=== PATIENT | male | born 1950 | race Two or more races ===

== ENCOUNTER 2019-05-30 17:40 | Inpatient (IN) | payer OTHER, MEDICARE ==
[~2019-05-30] VITALS: Ht 182.9 cm; Wt 110.2 kg
[~2019-05-30 17:40] MED LIST: ACET500 PO; ASPI81EC PO; BUPR100 PO; CYAN1000I IM; ETOD400 PO; PRAZ2 PO; QUET200 PO; Simvastatin40 MG PO; TOLT4 PO; Zantac150 MG PO
[2019-05-30 18:25] LABS: BASOPHILS ABSOLUTE AUTO 0.05 K/mm3 (0.00-0.23); BASOPHILS PERCENT AUTO 1 % (0-2); EOSINOPHILS ABSOLUTE AUTO 0.11 K/mm3 (0.00-0.68); EOSINOPHILS PERCENT AUTO 1 % (0-6); Hematocrit 47.9 % (37.0-53.0); IMMATURE GRAN ABSOLUTE AUTO 0.02 K/mm3 (0.00-0.10); IMMATURE GRAN PERCENT AUTO 0 % (0-1); LYMPHOCYTES PERCENT AUTO 25 % (21-46); MONOCYTES ABSOLUTE AUTO 0.74 K/mm3 (0.16-1.47); MONOCYTES PERCENT AUTO 9 % (4-13); Mean Corpuscular HGB 23.7 pg (26.0-34.0); Mean Corpuscular HGB Conc 31.3 g/dL (31.5-36.5); Mean Corpuscular Volume 76 fL (80-100); Mean Platelet Volume 9.4 fL (9.1-12.4); NEUTROPHILS ABSOLUTE AUTO 5.17 K/mm3 (1.96-9.15); NEUTROPHILS PERCENT AUTO 64 % (41-73); Platelet Count 431 K/mm3 (150-400); RDW Coefficient Variation 15.3 % (11.7-14.2); RDW Standard Deviation 41.3 fL (35.1-46.3); Red Blood Cell Count 6.34 M/mm3 (4.30-5.90); White Blood Cell Count 8.09 K/mm3 (4.00-11.30)
[2019-05-30 18:50] LABS: Alanine Aminotransfer (ALT/SGP 44 U/L (12-78); Albumin, Blood 3.8 g/dL (3.4-5.0); Albumin/Globulin Ratio 0.9 (0.8-1.8); Alk Phos 135 U/L (50-136); Anion Gap 10 mmol/L (6-16); Aspartate Aminotrans (AST/SGOT 28 U/L (12-37); Bilirubin, Total 0.5 mg/dL (0.1-1.0); Blood Urea Nitrogen 50 mg/dL (8-24); Bun/Creatinine Ratio 29.8 (12.0-20.0); CO2, Blood 27 mmol/L (21-32); Calcium, Blood 9.4 mg/dL (8.5-10.1); Chloride, Blood 94 mmol/L (98-108); Creatinine, Blood 1.68 mg/dL (0.60-1.20); Globulin, Blood 4.4 g/dL (2.2-4.0); Glomerular Filtration Rate 43 (60-); Glucose, Blood 361 mg/dL (70-99); Potassium, Blood 4.5 mmol/L (3.5-5.5); Sodium, Blood 131 mmol/L (136-145); Total Protein, Blood 8.2 g/dL (6.4-8.2); Troponin I <0.015 ng/mL (0.000-0.040)
[2019-05-30] MEDS ORDERED: JARDIANCE25 MG PO (20:44)
[2019-05-30] MEDS ORDERED: ELIQUIS5 MG PO (20:44)
[2019-05-30] MEDS ORDERED: TORSE20 PO (20:45)
[2019-05-30] MEDS ORDERED: POTA10T PO (20:46)
[2019-05-30] MEDS ORDERED: METF500 PO (20:46)
[2019-05-30] MEDS ORDERED: METO100ER PO (20:47)
--- NOTE | 2019-05-31 02:20 | NUR ---
PT REQUESTED ASSISTANCE TO BSC TO HAVE A BM. THIS RN ENCOURAGED PT TO USE BEDPAN, HOWEVER PT REFUSED. ASSISTED PT TO BSC AND STAYED WITH PT FOR SEVERAL MINUTES. PT REPORTED THAT HE FELT FINE, PT WAS STABLE ON BSC. WHEN I WENT TO GRAB A NEW ATTENDS FOR THE PT ON BEDSIDE SHELF PT HAD SYNCOPAL EPISODE AND FELL FORWARD FROM BSC DOWN TO ONE KNEE. ASSISTED PT BACK TO BED IMMEDIATELY. PT DID NOT HIT HIS HEAD AND DENIED ANY INJURY. VITALS TAKEN WHICH WERE WNL. DURING INSTANCE, TELE STATED THAT PT HR HAD JUMPED TO 150'S, THEN BACK DOWN TO 90'S ONCE BACK IN BED. NOTIFIED DR CASTREJON. DR CASTREJON VERIFIED THAT PT WAS ON IV FLUIDS AND STATED TO KEEP PT IN BED AT THIS TIME. WILL CONTINUE TO MONITOR PT.
--- NOTE | 2019-05-31 04:48 | NUR ---
MARINE CONSULTANT SUMMARY NEW ADMIT FROM THE ED THIS SHIFT. PT AAOX4 AND PLEASANT. ADMITTED AFTER HAVING MULTIPLE SYNCOPAL EPISODES AT HOME. PT CONTINUES TO BE SYMPTOMATIC HERE AT THE HOSPITAL. WHENEVER PT EXERTS HIMSELF BY TRYING TO STAND UP PT WILL BECOME LIGHT HEADED AND WILL ALMOST FALL. PT DID FALL FORWARD ONTO HIS KNEES FROM THE BSC AT ONE POINT, SEE PREVIOUS NOTE FOR MORE DETAIL. PT IS NOW ON BEDREST AFTER TALKING WITH DR CASTREJON. PT TO HAVE CARDIOLOGY CONSULT WITH DR RENTERIA LATER TODAY. TELEMETRY REPORTS INCREASE IN PT'S HR DURING THESE EPISODES. WILL CONTINUE TO MONITOR.
[2019-05-31 06:03] LABS: Bun/Creatinine Ratio 28.2 (12.0-20.0); Calcium, Blood 8.8 mg/dL (8.5-10.1); Creatinine, Blood 1.49 mg/dL (0.60-1.20); Potassium, Blood 4.1 mmol/L (3.5-5.5)
--- NOTE | 2019-05-31 16:14 | NUR ---
ORTHOSTATIC VITALS LYING: B/P 123/83 PULSE 99 SITTING: B/P 92/71 PULSE 95 STANDING: B/P 78/46 PULSE 61
--- NOTE | 2019-05-31 18:27 | NUR ---
PATIENT A/OX4, UP WITH GAITBELT AND ASSIST TO BSC. ORTHOSTATIC HYPOTESION WITH THIS EVENING VITALS, DR. LANG AND DR SIMPSON NOTIFED. XERALTO D/C'D AND PATIENT HAS SCD'S IN PLACE IN PREPARATION FOR ANGIOGRAM ON 06/02. PATIENT TO BE NPO AFTER MIDNIGHT TOMORROW 06/01. 18G IV TO L FA WNL, NS@100ML/HR INFUSING. LUNGS CLEAR, ON RA. DENIES ANY PAIN. FALL PRECAUTIONS IN PLACE PER UNIT PROTOCOL. AC BLOOD SUGARS, COVERAGE PER SLIDING SCALE. SKIN INTACT.
[2019-06-01 05:04] LABS: Hematocrit 46.5 % (37.0-53.0); Hemoglobin 13.8 g/dL (13.5-17.5); Mean Corpuscular HGB 23.2 pg (26.0-34.0); Mean Corpuscular HGB Conc 29.7 g/dL (31.5-36.5); Mean Corpuscular Volume 78 fL (80-100); Mean Platelet Volume 9.5 fL (9.1-12.4); Platelet Count 354 K/mm3 (150-400); RDW Coefficient Variation 15.5 % (11.7-14.2); RDW Standard Deviation 43.2 fL (35.1-46.3); Red Blood Cell Count 5.96 M/mm3 (4.30-5.90); White Blood Cell Count 6.88 K/mm3 (4.00-11.30)
[2019-06-01 05:36] LABS: Bun/Creatinine Ratio 23.6 (12.0-20.0); Creatinine, Blood 1.57 mg/dL (0.60-1.20); Potassium, Blood 4.1 mmol/L (3.5-5.5)
--- NOTE | 2019-06-01 16:09 | NUR ---
PATIENT GAVE THIS STUDENT RN PERMISSION TO BE PART OF HIS CARE ON 06/02/19.
--- NOTE | 2019-06-01 17:47 | NUR ---
PATIENT A/OX4, UP WITH SBA TO RESTROOM. NPO AFTER MN TONIGHT FOR ANGIOGRAM IN AM. A-FIB ON TELE, PATIENT DENIES ANY CP OR SOB. VSS, ON RA. DENIES ANY DIZZINESS THIS SHIFT. 18G IV TO L FA WNL AND SL. TOLERATING ADA/CARDIAC DIET. AC BLOOD SUGARS, COVERAGE PER SS.
--- NOTE | 2019-06-01 19:50 | NUR ---
MISSY WAS LAYING IN BED, DENIES ANY DIZZINESS AT THIS TIME. STATES HE THINKS HIS DIZZINESS WAS FROM HIM TAKING TO MANY BLOOD PRESSURE MEDS ALL AT ONCE. STATES HE DOES NOT GET DIZZY UPON STANDING IT IS WHEN HE REACHES THE BATHROOM OR SEVERAL FEET LATER. HE DOES NOT LOOSE VISION JUST HIS LEGS WANT TO GIVE OUT ON HIM. STATES HE NEEDED TO GO TO THE BATHROOM. HE GOT UP AND WAS ABLE TO WALK TO THE BATHROOM STEADY. BUT ON THE WAY BACK TO THE BED, HE GOT VERY UNSTEADY AND ALMOST FELL TWICE. PLACED THE BED ALARM ON HIM AND ENCOURAGE HIM TO CALL WHEN HE GETS UP FOR SAFETY.
[2019-06-02 05:18] LABS: International Normalized Ratio 1.12; Prothrombin Time Results 11.9 Sec (9.7-11.5)
--- NOTE | 2019-06-02 05:34 | NUR ---
SHIFT SUMMARY: MISSY QUEZADA REMAINED WITH IN NORMAL LIMITS. HE DID HAVE A LOW THIS AM IN THE 70'S BUT ON RETAKE IT WAS ABOVE 100 SYSTOLIC. CONTINUES TO HAVE DIZZINESS WHEN HE GETS UP AND WALKS A FEW FEET. WAS UNSTEADY WHEN GOING TO BATHROOM TONIGHT AND ALMOST FELL A COUPLE OF TIMES. DOES NOT USE CALL LIGHT WOULD SET THE ALARM OFF EACH TIME. STATES HE IS NOT DIZZY WHEN HE IS. DENIED ANY PAIN OR DISCOMFORT. NPO AFTER MIDNIGHT. SLEPT 90% OF THE NIGHT. CALL LIGHT REMAINED IN REACH AND BED ALARM REMAINED ON.
[2019-06-02 05:37] LABS: Calcium, Blood 8.8 mg/dL (8.5-10.1); Creatinine, Blood 1.26 mg/dL (0.60-1.20); Magnesium, Blood 2.2 mg/dL (1.6-2.4); Potassium, Blood 3.7 mmol/L (3.5-5.5)
[2019-06-02] MEDS ORDERED: Ropinirole HCl1 MG PO (13:41)
--- NOTE | 2019-06-02 16:34 | NUR ---
The pt arrived from the heart center at approx 1545. Awake, alert, and oriented. Instructed a few times not to use the right arm/hand. Right wrist site is without bleeding, bruising, swelling nor evidence of anthony osmani. Denies pain/numbness/tingling in the right upper extremity. TR band is in place; I was told in report by Jie Hayes that it was inflated with 9 cc air. White immoblizer board also in place. The site has been assessed with each vital sign check, and remains unchanged from intial assessment. Vital signs noted, and reported to Arlene Jasmine, the primary RN. Pt denies any lightheadedness/dizzyness while siting up in bed. He was given a snack just after arrival at 1600. Instructed the pt to be sure to call and have a staff member with him when he needs to get OOB to toilet or stretch his legs. He verbalized understanding of this.
[2019-06-03 03:56] LABS: BASOPHILS ABSOLUTE AUTO 0.03 K/mm3 (0.00-0.23); BASOPHILS PERCENT AUTO 1 % (0-2); EOSINOPHILS ABSOLUTE AUTO 0.16 K/mm3 (0.00-0.68); EOSINOPHILS PERCENT AUTO 3 % (0-6); Hematocrit 44.1 % (37.0-53.0); Hemoglobin 13.5 g/dL (13.5-17.5); IMMATURE GRAN ABSOLUTE AUTO 0.01 K/mm3 (0.00-0.10); IMMATURE GRAN PERCENT AUTO 0 % (0-1); LYMPHOCYTES ABSOLUTE AUTO 2.01 K/mm3 (0.84-5.20); LYMPHOCYTES PERCENT AUTO 38 % (21-46); MONOCYTES ABSOLUTE AUTO 0.54 K/mm3 (0.16-1.47); MONOCYTES PERCENT AUTO 10 % (4-13); Mean Corpuscular HGB 23.6 pg (26.0-34.0); Mean Corpuscular HGB Conc 30.6 g/dL (31.5-36.5); Mean Corpuscular Volume 77 fL (80-100); Mean Platelet Volume 9.5 fL (9.1-12.4); NEUTROPHILS ABSOLUTE AUTO 2.56 K/mm3 (1.96-9.15); NEUTROPHILS PERCENT AUTO 48 % (41-73); Platelet Count 309 K/mm3 (150-400); RDW Coefficient Variation 15.3 % (11.7-14.2); RDW Standard Deviation 42.2 fL (35.1-46.3); Red Blood Cell Count 5.71 M/mm3 (4.30-5.90); White Blood Cell Count 5.31 K/mm3 (4.00-11.30)
[2019-06-03 04:27] LABS: Anion Gap 7 mmol/L (6-16); Blood Urea Nitrogen 26 mg/dL (8-24); Bun/Creatinine Ratio 22.8 (12.0-20.0); CO2, Blood 26 mmol/L (21-32); Calcium, Blood 8.6 mg/dL (8.5-10.1); Chloride, Blood 106 mmol/L (98-108); Creatinine, Blood 1.14 mg/dL (0.60-1.20); Glomerular Filtration Rate >60 (60-); Glucose, Blood 182 mg/dL (70-99); Potassium, Blood 3.9 mmol/L (3.5-5.5); Sodium, Blood 139 mmol/L (136-145)
--- NOTE | 2019-06-03 05:29 | NUR ---
SHIFT SUMMARY PT SLEEPING IN ROOM COMFORTABLY AT THIS TIME. NO ACUTE CHANGES IN STATUS T/O NIGHT. PT REPORTS DIDN'T SLEPT WELL. TR BAND WAS DEFLATED NO R WRIST. SITE WNL. NO HEMATOMA. FULL DEFLATED BY 0100, TEGADERM IN PLACE, ARMBOARD IN PLACE. RESP EVEN UNLABORED ON RA W/ SATS >92%. DENIED CP OR SOB T/O NIGHT. DENIES OTHER NEEDS. PT ASKED ABOUT BEDSIDE REPORT FOR THIS MORNING, PT REQUESTING NO BEDSIDE REPORT "I DIDN'T SLEEP WELL, I'D LIKE TO SLEEP IN". CALL LIGHT IS WITHIN REACH OF PT.
--- NOTE | 2019-06-03 08:31 | NUR ---
AM NOTE... ASSUMED CARE OF PT APROX 0700. PT IS A&Ox4 AND SBA IN THE ROOM. PT IS S/P ANGIO W/NO INTERVENTIONS. RIGHT RADIAL SITE IS C/D/I WITH NO REDNESS, SWELLING,BLEEDING OR HEMATOMA NOTED. PT DENIES ANY PAIN AT THIS TIME. PT'S VS STABLE. PT IS CLEARED PER CARDIOLOGY TO D/C HOME TODAY, PT IS WAITNG FOR PT/OT EVAL AT THIS TIME. PT IS AGREEABLE TO THIS PLAN OF CARE. CALL LIGHT IN REACH WILL CONTINUE TO MONITOR.
[2019-06-03] MEDS ORDERED: ASPI81CH PO (11:18)
== END 2019-06-03 15:11 | disposition home or self-care (01) | DRG 683 ==
LOC: ER 17:40 → MEDS 17:41 → PCU 06-02 15:36
PROVIDERS: Hospitalist; Internal Medicine; Internal Medicine Cardiovascular Disease; Physician Assistant; ADMIT Hospitalist
DX: N17.9 Acute kidney failure, unspecified (principal); E87.1 Hypo-osmolality and hyponatremia; I50.22 Chronic systolic (congestive) heart failure; I13.0 Hypertensive heart and chronic kidney disease with heart failure and stage 1 through stage 4 chronic kidney disease, or unspecified chronic kidney disease; I42.8 Other cardiomyopathies; I49.5 Sick sinus syndrome; N18.3 Chronic kidney disease, stage 3 (moderate); Z79.82 Long term (current) use of aspirin; E87.5 Hyperkalemia; E11.22 Type 2 diabetes mellitus with diabetic chronic kidney disease; Z79.4 Long term (current) use of insulin; Z98.84 Bariatric surgery status; E11.65 Type 2 diabetes mellitus with hyperglycemia; Z90.79 Acquired absence of other genital organ(s); F43.10 Post-traumatic stress disorder, unspecified; E86.1 Hypovolemia; R94.39 Abnormal result of other cardiovascular function study; T50.1X5A Adverse effect of loop [high-ceiling] diuretics, initial encounter; Y92.9 Unspecified place or not applicable
CPT/HCPCS: 36415; 71046; 76937; 80048; 80053; 82947; 83735; 83880; 84484; 85025; 85027; 85347; 85610; 86850; 86900; 86901; 93005; 93010; 93458; 96360; 97116; 97162; 99152; 99285-25; C1769; C1894; C8929; J1644; J2250; J3010; J7030; Q9957; Q9967

== ENCOUNTER 2020-07-21 13:38 | Emergency (ER) | payer OTHER ==
[~2020-07-21] VITALS: Ht 182.9 cm; Wt 118.8 kg
[~2020-07-21 13:38] MED LIST changes: +ASPI81CH PO; +ELIQUIS5 MG PO; +JARDIANCE25 MG PO; +METF500 PO; +METO100ER PO; +POTA10T PO; +Ropinirole HCl1 MG PO; +TORSE20 PO
[2020-07-21 14:11] LABS: BASOPHILS ABSOLUTE AUTO 0.03 K/mm3 (0.00-0.23); BASOPHILS PERCENT AUTO 0 % (0-2); EOSINOPHILS ABSOLUTE AUTO 0.14 K/mm3 (0.00-0.68); EOSINOPHILS PERCENT AUTO 2 % (0-6); Hematocrit 46.9 % (37.0-53.0); Hemoglobin 14.8 g/dL (13.5-17.5); IMMATURE GRAN ABSOLUTE AUTO 0.01 K/mm3 (0.00-0.10); IMMATURE GRAN PERCENT AUTO 0 % (0-1); LYMPHOCYTES ABSOLUTE AUTO 1.54 K/mm3 (0.84-5.20); LYMPHOCYTES PERCENT AUTO 20 % (21-46); MONOCYTES ABSOLUTE AUTO 0.68 K/mm3 (0.16-1.47); MONOCYTES PERCENT AUTO 9 % (4-13); Mean Corpuscular HGB 26.5 pg (26.0-34.0); Mean Corpuscular HGB Conc 31.6 g/dL (31.5-36.5); Mean Corpuscular Volume 84 fL (80-100); Mean Platelet Volume 9.7 fL (9.1-12.4); NEUTROPHILS ABSOLUTE AUTO 5.32 K/mm3 (1.96-9.15); NEUTROPHILS PERCENT AUTO 69 % (41-73); Platelet Count 304 K/mm3 (150-400); RDW Coefficient Variation 13.8 % (11.7-14.2); RDW Standard Deviation 42.3 fL (35.1-46.3); Red Blood Cell Count 5.58 M/mm3 (4.30-5.90); White Blood Cell Count 7.72 K/mm3 (4.00-11.30)
[2020-07-21 14:28] LABS: Alanine Aminotransfer (ALT/SGP 28 U/L (12-78); Albumin, Blood 3.6 g/dL (3.4-5.0); Alk Phos 101 U/L (50-136); Anion Gap 3 mmol/L (6-16); Aspartate Aminotrans (AST/SGOT 18 U/L (12-37); Bilirubin, Total 0.5 mg/dL (0.1-1.0); Blood Urea Nitrogen 17 mg/dL (8-24); Bun/Creatinine Ratio 14.8 (12.0-20.0); CO2, Blood 28 mmol/L (21-32); Calcium, Blood 8.8 mg/dL (8.5-10.1); Chloride, Blood 106 mmol/L (98-108); Creatinine, Blood 1.15 mg/dL (0.60-1.20); Globulin, Blood 3.5 g/dL (2.2-4.0); Glomerular Filtration Rate >60 (60-); Glucose, Blood 232 mg/dL (70-99); Potassium, Blood 4.3 mmol/L (3.5-5.5); Sodium, Blood 137 mmol/L (136-145); Total Protein, Blood 7.1 g/dL (6.4-8.2); Troponin I <0.015 ng/mL (0.000-0.040)
[2020-07-21] MEDS ORDERED: ACET500 PO (15:16)
[2020-07-21] MEDS ORDERED: ATOR40TA PO (15:17)
[2020-07-21] MEDS ORDERED: BENZ1 PO (15:18)
[2020-07-21] MEDS ORDERED: ARTIFICIAL TEA1 EAC6 BOTHEYES (15:21)
[2020-07-21] MEDS ORDERED: LANOXIN125 MCG PO (15:21)
[2020-07-21] MEDS ORDERED: JARDIANCE25 MG PO (15:23)
[2020-07-21] MEDS ORDERED: GABA300 PO (15:24)
[2020-07-21] MEDS ORDERED: HYDR454TO TOP (15:25)
[2020-07-21] MEDS ORDERED: HUMULIN N100 UNIT/6 SC (15:27)
[2020-07-21] MEDS ORDERED: METO50ER PO (15:29)
[2020-07-21] MEDS ORDERED: NITR.4SL SL (15:31)
[2020-07-21] MEDS ORDERED: TORSE20 PO (16:18)
== END 2020-07-21 17:53 | disposition home or self-care (01) ==
LOC: ER 13:38
PROVIDERS: Emergency Medicine
DX: G45.9 Transient cerebral ischemic attack, unspecified (principal); I48.91 Unspecified atrial fibrillation; I10 Essential (primary) hypertension; E11.9 Type 2 diabetes mellitus without complications; Z79.899 Other long term (current) drug therapy
CPT/HCPCS: 70450; 80053; 84484; 85025; 93005; 93010; 99285-25

== ENCOUNTER 2021-04-24 00:37 | Inpatient (IN) | payer OTHER ==
[~2021-04-24] VITALS: Ht 182.9 cm; Wt 99.1 kg
[~2021-04-24 00:37] MED LIST changes: +ACET325 PO; +ARTIFICIAL TEA1 EAC6 BOTHEYES; +ATOR40TA PO; +Benztropine Me0.5 MG PO; +GABA300 PO; +HUMULIN N100 UNIT/6 SC; +HYDR454TO TOP; +LANOXIN125 MCG PO; +METO50ER PO; +NITR.4SL SL
[2021-04-24 02:35] LABS: BASOPHILS ABSOLUTE AUTO 0.04 K/mm3 (0.00-0.23); BASOPHILS PERCENT AUTO 1 % (0-2); EOSINOPHILS ABSOLUTE AUTO 0.17 K/mm3 (0.00-0.68); EOSINOPHILS PERCENT AUTO 2 % (0-6); Hematocrit 44.4 % (37.0-53.0); Hemoglobin 14.1 g/dL (13.5-17.5); IMMATURE GRAN ABSOLUTE AUTO 0.01 K/mm3 (0.00-0.10); IMMATURE GRAN PERCENT AUTO 0 % (0-1); LYMPHOCYTES ABSOLUTE AUTO 1.94 K/mm3 (0.84-5.20); LYMPHOCYTES PERCENT AUTO 25 % (21-46); MONOCYTES ABSOLUTE AUTO 0.76 K/mm3 (0.16-1.47); MONOCYTES PERCENT AUTO 10 % (4-13); Mean Corpuscular HGB 25.8 pg (26.0-34.0); Mean Corpuscular HGB Conc 31.8 g/dL (31.5-36.5); Mean Corpuscular Volume 81 fL (80-100); Mean Platelet Volume 8.9 fL (9.1-12.4); NEUTROPHILS ABSOLUTE AUTO 4.74 K/mm3 (1.96-9.15); NEUTROPHILS PERCENT AUTO 62 % (41-73); Platelet Count 278 K/mm3 (150-400); RDW Standard Deviation 44.6 fL (35.1-46.3); Red Blood Cell Count 5.47 M/mm3 (4.30-5.90); White Blood Cell Count 7.66 K/mm3 (4.00-11.30)
[2021-04-24 03:24] LABS: Alanine Aminotransfer (ALT/SGP 44 U/L (12-78); Albumin, Blood 3.8 g/dL (3.4-5.0); Albumin/Globulin Ratio 1.2 (0.8-1.8); Alk Phos 109 U/L (50-136); Anion Gap 6 mmol/L (6-16); Aspartate Aminotrans (AST/SGOT 33 U/L (12-37); Bilirubin, Total 0.9 mg/dL (0.1-1.0); Blood Urea Nitrogen 18 mg/dL (8-24); Bun/Creatinine Ratio 18.8 (12.0-20.0); CO2, Blood 28 mmol/L (21-32); Chloride, Blood 103 mmol/L (98-108); Creatinine, Blood 0.96 mg/dL (0.60-1.20); Globulin, Blood 3.3 g/dL (2.2-4.0); Glomerular Filtration Rate >60 (60-); Glucose, Blood 171 mg/dL (70-99); Potassium, Blood 4.2 mmol/L (3.5-5.5); Sodium, Blood 137 mmol/L (136-145); Total Protein, Blood 7.1 g/dL (6.4-8.2); Troponin I <0.015 ng/mL (0.000-0.040)
[2021-04-24 07:17] LABS: Influenza A, PCR NEGATIVE (NEGATIVE); Influenza B, PCR NEGATIVE (NEGATIVE); Resp Syncytial Virus, PCR NEGATIVE (NEGATIVE); SARS-Cov-2 (COVID-19) PCR, MMC NEGATIVE (NEGATIVE)
[2021-04-24 11:25] LABS: Source, Urine Clean Catch
[2021-04-24 11:28] LABS: Appearance, Urine Hazy (Clear); Bilirubin, Urine Neg (Neg); Blood, Urine Neg (Neg); Color, Urine Yellow (P-Yellow); Glucose Qualitative, Urine 4+ (Neg); Ketones, Urine 1+ (Neg); Leukocyte Esterase, Urine Neg (Neg); Nitrite, Urine Neg (Neg); Protein, Urine 1+ (Neg); Specific Gravity, Urine 1.025 (1.003-1.022); Urobilinogen, Urine NORM (Normal)
[2021-04-24 11:47] LABS: Bacteria Not Seen /hpf; Mucus Light (0-Heavy); Red Blood Cells, Urine 0-2 /hpf (0-2); Squamous Epithelial Cells Not Seen /hpf (Few); White Blood Cells, Urine 0-2 /hpf (0-5)
[2021-04-24 12:14] LABS: U Amphetamine Screen Not Detected; U Barbituate Screen Not Detected; U Benzodiazapine Screen Not Detected; U Buprenorphine Screen Not Detected; U Cannabinoids Screen Not Detected; U Cocaine Screen Not Detected; U Methadone Screen Not Detected; U Methamphetamine Screen Not Detected; U Opiates Screen Not Detected; U Oxycodone Screen Not Detected; U Phencyclidine Screen Not Detected; U Propoxyphene Screen Not Detected
--- NOTE | 2021-04-24 15:30 | NUR ---
Echocardiogram completed.
--- NOTE | 2021-04-24 17:39 | NUR ---
SHIFT SUMMARY PATIENT ADMITTED FROM ER AT 1545. PATIENT SETTLED INTO ROOM. PATIENT DENIES PAIN, NAUSEA, AND SHORTNESS OF BREATH. TELE PLACED, RUNNING AFIB AT 79 PER TOY ELECTRIC TRAIN REPAIRER JEROME. PATIENT A&O X2-3. PATIENT KNEW HE WAS IN A HOSPITAL BUT THOUGHT HE WAS IN [place]. PATIENT IS A SBA. PATIENT DOES NOT USE CALL LIGHT APPROPRIATELY, BUT FOLLOWS OTHER DIRECTIONS WELL AND IS EASILY REDIRECTED. PATIENT EATING AND DRINKING WELL. PATIENT IS PLEASANT AND COOPERATIVE WITH CARE.
[2021-04-25 05:35] LABS: BASOPHILS ABSOLUTE AUTO 0.03 K/mm3 (0.00-0.23); BASOPHILS PERCENT AUTO 0 % (0-2); EOSINOPHILS ABSOLUTE AUTO 0.21 K/mm3 (0.00-0.68); EOSINOPHILS PERCENT AUTO 3 % (0-6); Hemoglobin 13.3 g/dL (13.5-17.5); IMMATURE GRAN ABSOLUTE AUTO 0.02 K/mm3 (0.00-0.10); IMMATURE GRAN PERCENT AUTO 0 % (0-1); LYMPHOCYTES ABSOLUTE AUTO 2.29 K/mm3 (0.84-5.20); LYMPHOCYTES PERCENT AUTO 32 % (21-46); MONOCYTES ABSOLUTE AUTO 0.75 K/mm3 (0.16-1.47); MONOCYTES PERCENT AUTO 11 % (4-13); Mean Corpuscular HGB 25.9 pg (26.0-34.0); Mean Corpuscular HGB Conc 31.7 g/dL (31.5-36.5); Mean Corpuscular Volume 82 fL (80-100); NEUTROPHILS ABSOLUTE AUTO 3.85 K/mm3 (1.96-9.15); NEUTROPHILS PERCENT AUTO 54 % (41-73); Platelet Count 279 K/mm3 (150-400); RDW Coefficient Variation 14.9 % (11.7-14.2); RDW Standard Deviation 44.8 fL (35.1-46.3); Red Blood Cell Count 5.13 M/mm3 (4.30-5.90); White Blood Cell Count 7.15 K/mm3 (4.00-11.30)
--- NOTE | 2021-04-25 06:09 | NUR ---
SHIFT SUMMARY PT AOX2 AND CONFUSED AT TIMES BUT EASY TO REDIRECT. PT TELE WAS LOW THE 40S AND PT. WAS IMPULSIVE WITH URGE TO VOID. PT. HIT THE URINAL OUT OF STAFF'S HAND AND WENT BACK TO SLEEP. PT. YELLS OUT IN THEIR SLEEP AND DOES NOT RECALL THE ACTIONS WHEN AWAKE. BS WAS LOW AT 0600 BUT PT. REQUESTED JUICE TO HELP UNTIL BREAKFAST. THIS NURSE WILL CONTINUE TO MONITOR UNTIL REPORT IS GIVEN.
[2021-04-25 06:25] LABS: Alanine Aminotransfer (ALT/SGP 36 U/L (12-78); Albumin, Blood 2.9 g/dL (3.4-5.0); Albumin/Globulin Ratio 0.9 (0.8-1.8); Alk Phos 100 U/L (50-136); Anion Gap 5 mmol/L (6-16); Aspartate Aminotrans (AST/SGOT 21 U/L (12-37); Bilirubin, Total 1.2 mg/dL (0.1-1.0); Blood Urea Nitrogen 20 mg/dL (8-24); Bun/Creatinine Ratio 19.4 (12.0-20.0); CO2, Blood 32 mmol/L (21-32); Calcium, Blood 8.7 mg/dL (8.5-10.1); Chloride, Blood 103 mmol/L (98-108); Creatinine, Blood 1.03 mg/dL (0.60-1.20); Globulin, Blood 3.1 g/dL (2.2-4.0); Glomerular Filtration Rate >60 (60-); Glucose, Blood 68 mg/dL (70-99); Potassium, Blood 3.7 mmol/L (3.5-5.5); Sodium, Blood 140 mmol/L (136-145)
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
--- NOTE | 2021-04-25 17:54 | NUR ---
PATIENT A/OX3 THIS SHIFT, BUT VERY DROWSY AND FALLS ASLEEP DURING CONVERSATION. VSS, ON RA. A-FIB ON TELE WITH PULSE 60-70'S. DENIES ANY PAIN OR DISCOMFORT. AMBULATING WITH FWW, GB AND 1 ASSIST. RECENT FALLS AT HOME, FALL PRECAUTIONS IN PLACE PER PROTOCOL. HEAD MRI COMPLETED THIS AFTERNOON. ACHS BLOOD SUGARS, PATIENT HAS NOT REQUIRED ANY SS INSULIN. BLOOD SUGAR 55 THIS AM, CAME UP WITH JUICE AND BREAKFAST AND INSULIN HAS SINCE BEEN ADJUSTED. OT RECOMMENDING HOME HEALTH WHEN STABLE.
[2021-04-26 03:22] LABS: Glucose, Blood 61 mg/dL (70-99)
--- NOTE | 2021-04-26 04:59 | NUR ---
patient very agitated earlier this evening requiring bilateral soft wrist restraints.. This morning around 0330, blood pressures were running in the 70 's-80's systolic. and blood glucose 61 at 0300, and 57 at 0420. MD notified and orders received for bolus and then hydration fluid. Patient is currently on both prandial and sliding scale regular insulin as well as NPH. 3 apple juices 2 packets sugar, and one sandwich and a carton of milk given to patient. will monitor patient closely
--- NOTE | 2021-04-26 06:22 | NUR ---
PATIENT HAD A FITFUL NIGHT GETTING VERY ANXIOUS AND AGITATED TRYING TO GET OOB, TO PULLING OUT ANOTHER IV. BLOOD PRESSURES AROUND 0300 WERE RUNNING IN THE 70'S AND 80'S SYSTOLIC. BLOOD SUGAR DROPPED FROM 171 AT HS TO 61 AT 0300. 30 MINUTES LATER, IT WAS BACK IN THE 90'S AFTER A SANDWICH AND APPLE JUICE. MD NOTIFIED OF EACH AND ORDERS FOR FLUID BOLUS, THEN CONTINUOUS D5 1/2 THE HYPOGLYCEMIA PROTOCOL AND A DISCONTINUATION OF INSULIN N. AGAIN THIS MORNING, PATIENT WAS NOT ABLE TO COMPLETE A SENTENCE WITHOUT FALLING TO SLEEP DURING THE PERIOD AFTER MIDNIGHT TILL THIS MORNING. TELE: AMADOR IN THE 70'S ALL NIGHT
--- NOTE | 2021-04-26 18:02 | NUR ---
PATIENT A/OX3 THIS SHIFT, CONTINUES TO HAVE PERIODS OF CONFUSION AND FLIGHT OF IDEAS. CALM AND COOPERATIVE THIS SHIFT AND REDIRECTABLE. HYPOTENSIVE THIS AM, BOLUS GIVEN X1. D51/2 NS INFUSION AT 75ML/HR. A-FIB IN THE 70'S THIS SHIFT ON TELE. PATIENT DENIES ANY CP OR SHORTNESS OF BREATH. WORKING WITH PT/OT, UP WITH FWW/GB AN [address] ASSIST[address] PRE[address]UTIONS IN PLACE. TOLERATING REGULAR DIET.
--- NOTE | 2021-04-26 19:31 | NUR ---
spoke with pharmacy this evening regarding patient's Requip dose time. She states half life of 6 hours is complete, and 2100 dose would not be detrimental to patient. Will contact MD and request night dose and changing daily dosing to HS starting tommorow.
--- NOTE | 2021-04-27 06:39 | NUR ---
Patient more reasonable and relaxed overnight after receiving his Requip at . Still impulsive getting in and out of bed, but slowed and stopped when the alarm went off. No complaints of pain or discomfort last night. No need for restraints. Just does not seem to understand the importance of calling for assistance OOB while we are trying to find out why he has had such a significant amount of falls of late. He does understand that several of his diabetic meds and HTN meds have been dc'd or reduced.
[2021-04-27] MEDS ORDERED: MELA3 PO (12:33)
[2021-04-27] MEDS ORDERED: METO50ER PO (13:16)
--- NOTE | 2021-04-27 15:09 | NUR ---
DISCHARGE SUMMARY PATIENT IS ALERT AND ORIENTED X3-4. PATIENT HAD NO ACUTE EVENTS THIS SHIFT. PATIENT HAD A ZIO MONITOR PUT ON WITH NO INCIDENTS. VITAL SIGNS REVIEWED. PATIENT VERBALLY UNDERSTOOD DISCHARGE INSTRUCTIONS. PATIENT WAS WHEELED OUT TO FRIENDS VEHICLE BY MARGOTH CAMP.
== END 2021-04-27 15:05 | disposition home health service (06) | DRG 637 ==
LOC: ER 00:37 → ERHOLD 00:38 → MEDS 00:38
PROVIDERS: Family Medicine; Physician Assistant; Student in an Organized Health Care Education/Training Program; ADMIT Internal Medicine
DX: E11.649 Type 2 diabetes mellitus with hypoglycemia without coma (principal); G92.8 Other toxic encephalopathy; I48.20 Chronic atrial fibrillation, unspecified; I50.22 Chronic systolic (congestive) heart failure; I42.9 Cardiomyopathy, unspecified; I95.2 Hypotension due to drugs; E78.5 Hyperlipidemia, unspecified; I11.0 Hypertensive heart disease with heart failure; E11.40 Type 2 diabetes mellitus with diabetic neuropathy, unspecified; G47.00 Insomnia, unspecified; I34.0 Nonrheumatic mitral (valve) insufficiency; R29.6 Repeated falls; G25.81 Restless legs syndrome; E11.65 Type 2 diabetes mellitus with hyperglycemia; Z86.73 Personal history of transient ischemic attack (TIA), and cerebral infarction without residual deficits; Z79.899 Other long term (current) drug therapy; Z90.79 Acquired absence of other genital organ(s); Z98.890 Other specified postprocedural states; W01.10XA Fall on same level from slipping, tripping and stumbling with subsequent striking against unspecified object, initial encounter; Z79.4 Long term (current) use of insulin; E86.0 Dehydration
CPT/HCPCS: 0241U; 36415; 70450; 70551; 71045; 80053; 81001; 82533; 82607; 82746; 82947; 83036; 83880; 84439; 84443; 84484; 85025; 93005; 93010; 93246; 93306; 96374; 97116; 97162; 97166; 97530; 97535; 99285-25; A9270; G0378; J1815; J7030; J7042; J7120

== ENCOUNTER 2021-05-30 02:24 | Emergency (ER) | payer OTHER ==
[~2021-05-30] VITALS: Ht 182.9 cm; Wt 102.1 kg
[~2021-05-30 02:24] MED LIST changes: +MELA3 PO
[2021-05-30 04:10] LABS: BASOPHILS ABSOLUTE AUTO 0.04 K/mm3 (0.00-0.23); BASOPHILS PERCENT AUTO 1 % (0-2); EOSINOPHILS PERCENT AUTO 1 % (0-6); Hematocrit 42.2 % (37.0-53.0); Hemoglobin 13.4 g/dL (13.5-17.5); IMMATURE GRAN ABSOLUTE AUTO 0.01 K/mm3 (0.00-0.10); IMMATURE GRAN PERCENT AUTO 0 % (0-1); LYMPHOCYTES ABSOLUTE AUTO 1.33 K/mm3 (0.84-5.20); LYMPHOCYTES PERCENT AUTO 18 % (21-46); MONOCYTES ABSOLUTE AUTO 0.86 K/mm3 (0.16-1.47); MONOCYTES PERCENT AUTO 11 % (4-13); Mean Corpuscular HGB Conc 31.8 g/dL (31.5-36.5); Mean Corpuscular Volume 82 fL (80-100); Mean Platelet Volume 9.4 fL (9.1-12.4); NEUTROPHILS ABSOLUTE AUTO 5.21 K/mm3 (1.96-9.15); NEUTROPHILS PERCENT AUTO 69 % (41-73); Platelet Count 259 K/mm3 (150-400); RDW Coefficient Variation 14.5 % (11.7-14.2); Red Blood Cell Count 5.16 M/mm3 (4.30-5.90); White Blood Cell Count 7.55 K/mm3 (4.00-11.30)
[2021-05-30 04:26] LABS: Anion Gap 7 mmol/L (6-16); Blood Urea Nitrogen 17 mg/dL (8-24); Bun/Creatinine Ratio 19.6 (12.0-20.0); CO2, Blood 28 mmol/L (21-32); Calcium, Blood 8.8 mg/dL (8.5-10.1); Chloride, Blood 101 mmol/L (98-108); Creatinine, Blood 0.87 mg/dL (0.60-1.20); Glomerular Filtration Rate >60 (60-); Glucose, Blood 169 mg/dL (70-99); Potassium, Blood 3.8 mmol/L (3.5-5.5); Sodium, Blood 136 mmol/L (136-145)
== END 2021-05-30 05:55 | disposition home or self-care (01) ==
LOC: ER 02:24
PROVIDERS: Student in an Organized Health Care Education/Training Program
DX: S00.03XA Contusion of scalp, initial encounter (principal); I48.91 Unspecified atrial fibrillation; E11.9 Type 2 diabetes mellitus without complications; I10 Essential (primary) hypertension; F43.9 Reaction to severe stress, unspecified; E78.5 Hyperlipidemia, unspecified; K85.90 Acute pancreatitis without necrosis or infection, unspecified; G25.81 Restless legs syndrome; Z91.14 Patient's other noncompliance with medication regimen; Z79.84 Long term (current) use of oral hypoglycemic drugs; Z79.899 Other long term (current) drug therapy; W01.198A Fall on same level from slipping, tripping and stumbling with subsequent striking against other object, initial encounter
CPT/HCPCS: 70450; 80048; 83735; 85025; 93005; 93010; 96365; 96375; 96376; 99284-25; A9270; J3475

== ENCOUNTER 2023-04-29 16:44 | Inpatient (IN) | payer OTHER ==
[~2023-04-29] VITALS: Ht 182.9 cm; Wt 93.8 kg
[~2023-04-29 16:44] MED LIST changes: +CEPH500 PO
[2023-04-29 17:15] LABS: BASOPHILS ABSOLUTE AUTO 0.03 K/mm3 (0.00-0.23); BASOPHILS PERCENT AUTO 0 % (0-2); EOSINOPHILS ABSOLUTE AUTO 0.03 K/mm3 (0.00-0.68); EOSINOPHILS PERCENT AUTO 0 % (0-6); Hematocrit 40.7 % (37.0-53.0); Hemoglobin 13.6 g/dL (13.5-17.5); IMMATURE GRAN ABSOLUTE AUTO 0.04 K/mm3 (0.00-0.10); IMMATURE GRAN PERCENT AUTO 0 % (0-1); LYMPHOCYTES ABSOLUTE AUTO 0.65 K/mm3 (0.84-5.20); LYMPHOCYTES PERCENT AUTO 5 % (21-46); MONOCYTES ABSOLUTE AUTO 0.65 K/mm3 (0.16-1.47); MONOCYTES PERCENT AUTO 5 % (4-13); Mean Corpuscular HGB 28.3 pg (26.0-34.0); Mean Corpuscular HGB Conc 33.4 g/dL (31.5-36.5); Mean Corpuscular Volume 85 fL (80-100); Mean Platelet Volume 9.1 fL (9.1-12.4); NEUTROPHILS ABSOLUTE AUTO 11.44 K/mm3 (1.96-9.15); NEUTROPHILS PERCENT AUTO 89 % (41-73); Platelet Count 240 K/mm3 (150-400); RDW Standard Deviation 43.2 fL (35.1-46.3); Red Blood Cell Count 4.81 M/mm3 (4.30-5.90); White Blood Cell Count 12.84 K/mm3 (4.00-11.30)
[2023-04-29 17:27] LABS: Albumin, Blood 3.4 g/dL (3.4-5.0); Albumin/Globulin Ratio 1.1 (0.8-1.8); Bilirubin, Total 0.8 mg/dL (0.1-1.0); Bun/Creatinine Ratio 19.5 (12.0-20.0); Creatinine, Blood 0.87 mg/dL (0.60-1.20); Globulin, Blood 3.2 g/dL (2.2-4.0); Magnesium, Blood 1.7 mg/dL (1.6-2.4); Total Protein, Blood 6.6 g/dL (6.4-8.2)
[2023-04-29 18:18] LABS: Influenza A, PCR NEGATIVE (NEGATIVE); Influenza B, PCR NEGATIVE (NEGATIVE); Resp Syncytial Virus, PCR NEGATIVE (NEGATIVE); SARS-Cov-2 (COVID-19) PCR, MMC NEGATIVE (NEGATIVE)
[2023-04-29 18:37] LABS: Thyroid Stimulating Hormone 0.405 uIU/mL (0.360-4.800)
[2023-04-29 20:07] LABS: Source, Urine Clean Catch
[2023-04-29 20:10] LABS: Bilirubin, Urine Neg (Neg); Blood, Urine Neg (Neg); Glucose Qualitative, Urine 4+ (Neg); Ketones, Urine Neg (Neg); Leukocyte Esterase, Urine Neg (Neg); Nitrite, Urine Neg (Neg); Protein, Urine Neg (Neg); Specific Gravity, Urine 1.015 (1.003-1.022); Urobilinogen, Urine NORM (Normal)
[2023-04-29 20:12] LABS: Appearance, Urine Clear (Clear); Color, Urine Yellow (P-Yellow)
--- NOTE | 2023-04-29 22:55 | NUR ---
PATIENT ARRIVED TO ICU 10 VIA GURNEY, TRANSFER TO ICU BED USING SLIDER SHEET AND PLACED ON ICU MONITORS. PATIENT A&O X3 HOLDING GOOD CONVERSATION. GENERALIZED WEAKNESS, BUT ABLE TO ASSIST WITH POSITIONING. RIGHT HAND SWOLLEN AND BRUISED WITH MULTIPLE SCABBED ABRASIONS, PATIENT FX HIS RIGHT POINTER FINGER 2 DAYS AGO. PATIENTS FEET HAVE MULTIPLE SMALL WOUNDS TO HIS TOES. SEE PICTURES IN CHART. HEART MONITOR SHOWING AFIB. HYPOTENSION WITH MAP 60-70. WITH NEOSYNEPHERIN ORDERED IF NEEDED
[2023-04-29 23:00] VITALS: BP 93/68
[2023-04-29 23:03] VITALS: BP 93/68
[2023-04-29 23:15] VITALS: BP 87/67
[2023-04-29 23:30] VITALS: BP 88/56
[2023-04-29 23:45] VITALS: BP 97/64
[2023-04-29 23:47] LABS: Digoxin (Lanoxin) 0.11 ug/mL (0.80-2.00)
[2023-04-30] VITALS (35 sets, daily range): BP systolic 92–132; BP diastolic 59–91
[2023-04-30 03:30] LABS: BASOPHILS ABSOLUTE AUTO 0.05 K/mm3 (0.00-0.23); BASOPHILS PERCENT AUTO 0 % (0-2); EOSINOPHILS ABSOLUTE AUTO 0.04 K/mm3 (0.00-0.68); EOSINOPHILS PERCENT AUTO 0 % (0-6); Hematocrit 37.6 % (37.0-53.0); Hemoglobin 12.3 g/dL (13.5-17.5); IMMATURE GRAN ABSOLUTE AUTO 0.07 K/mm3 (0.00-0.10); IMMATURE GRAN PERCENT AUTO 0 % (0-1); LYMPHOCYTES ABSOLUTE AUTO 1.42 K/mm3 (0.84-5.20); LYMPHOCYTES PERCENT AUTO 8 % (21-46); MONOCYTES ABSOLUTE AUTO 0.94 K/mm3 (0.16-1.47); MONOCYTES PERCENT AUTO 5 % (4-13); Mean Corpuscular HGB 27.8 pg (26.0-34.0); Mean Corpuscular HGB Conc 32.7 g/dL (31.5-36.5); Mean Corpuscular Volume 85 fL (80-100); Mean Platelet Volume 9.3 fL (9.1-12.4); NEUTROPHILS ABSOLUTE AUTO 15.63 K/mm3 (1.96-9.15); NEUTROPHILS PERCENT AUTO 86 % (41-73); Platelet Count 218 K/mm3 (150-400); RDW Coefficient Variation 14.2 % (11.7-14.2); RDW Standard Deviation 43.9 fL (35.1-46.3); Red Blood Cell Count 4.42 M/mm3 (4.30-5.90); White Blood Cell Count 18.15 K/mm3 (4.00-11.30)
[2023-04-30 03:52] LABS: Albumin, Blood 2.7 g/dL (3.4-5.0); Albumin/Globulin Ratio 0.9 (0.8-1.8); Bilirubin, Total 0.8 mg/dL (0.1-1.0); Bun/Creatinine Ratio 20.5 (12.0-20.0); Calcium, Blood 8.1 mg/dL (8.5-10.1); Creatinine, Blood 0.93 mg/dL (0.60-1.20); Magnesium, Blood 1.9 mg/dL (1.6-2.4); Potassium, Blood 4.5 mmol/L (3.5-5.5); Total Protein, Blood 5.7 g/dL (6.4-8.2)
--- NOTE | 2023-04-30 05:51 | NUR ---
SUMMARY PATIENT RESTING QUIETLY T/O NIGHT VERBALIZED THAT HE HAS HAD NO SLEEP T/O NIGHT. PATIENT REMAINS A&O USING BED, CALL LIGHT APPROPRIATELY. BP HAS IMPROVED NIGHT PROGRESSED. AFIB CONTINUES WITH RATE 90-100'S. BIOX > 93% ON RA.
[2023-04-30] MEDS ORDERED: TOLT2 PO (06:59)
[2023-04-30] MEDS ORDERED: SERT50 PO (06:59)
[2023-04-30] MEDS ORDERED: Seroquel Xr50 MG PO (07:11)
[2023-04-30] MEDS ORDERED: QUET300 PO (07:20)
[2023-04-30] MEDS ORDERED: JARDIANCE10 MG PO (07:21)
[2023-04-30] MEDS ORDERED: ACET500 PO (07:22)
[2023-04-30] MEDS ORDERED: METO25ER PO (07:24)
[2023-04-30] MEDS ORDERED: ROPI1 PO ×2 (07:26→07:29)
--- NOTE | 2023-04-30 07:27 | NUR ---
Assumed care of pt at 0700. Bedside report received from Khalida SILVA. Pt A&O x 4. Answers questions, follows commands verbalizes needs, pleasant and cooperative with care. SpO2 90% or greater RA. Afib per monitor. Rate 100-105. States he is feeling back to his usual state of well being.
[2023-04-30] MEDS ORDERED: THERA-D2000 UNIT PO (07:29)
--- NOTE | 2023-04-30 11:46 | NUR ---
After initial encounter this AM, pt became agitated and repeatedly stated he wanted to leave. He placed call to his daughter to ask her to pick him up as he did not want to be in the hospital anymore. Call placed to Dr Rubalcava to notify. Provider and this RN at bedside. Educated patient that IV antibiotics are part of his care regimen and he will not be discharged today. Pt states he will be leaving regardless of whether or not he is medically dischared. Educated that leaving hospital against medical advice can result in rehospitalization, worsening of condition and even . Patient verbalized understanding of these risks and reinforced that he was leaving. On this RN and Dr Rubalcava leaving room, he summoned RN back in to room to notify that he wanted to stay stating "I have a brand new great grandbaby that I want to be here for". This RN placed call to family to update. Pt remains pleasant and cooperative with care.
--- NOTE | 2023-04-30 16:57 | NUR ---
SUMMARY Pt is PCU status. Neuro/Musc/ADLS: A&O x 4. Answers questions, follows commands, verbalizes needs. Pleasant and cooperative with care. Mobilizes around room with assist. OT in to see patient but will be signing off. Dr Bradford in to see pt regarding fractured finger. Prescribed bandaid to cover sutures as well as "billy-tape" for affected finger and middle finger. Able to perform ADLs independently. Resp: Lungs clear t/o. SpO2 90% or greater RA. Cardiac: Afib per monitor with rate 100-105. Edema, cap refill, distal pulses unchanged from initial assessment. GI/: Good appetite. Stands to void into urinal. Two BMs today. Skin: Unchanged from initial assessment. Psychsocial: In good spirits this afternoon. Has not mentioned wanting to leave AMA since previous note.
--- NOTE | 2023-04-30 19:57 | NUR ---
ASSUMED CARE PT IS A&O X4; RESTING QUIETLY AND WATCHING TV ON CELLPHONE. PT IS PLEASANT AND COOPERATIVE. NO COMPLAINTS OF CP, SOB, OR NAUSEA.
--- NOTE | 2023-04-30 21:32 | NUR ---
UPDATE PT DECLINED CPAP PER RT. PT STATES DESIRE TO LEAVE HOSPITAL TOMORROW BEFORE NOON FOR DENTAL APPOINTMENT ([facility]). INFORMED PT THAT THIS RN WILL LET DAYSHIFT RN KNOW HE HAS AN APPOINTMENT AND RECOMMENDED FOR HIM TO DISCUSS WITH HOSPITALIST TOMORROW ABOUT WHETHER GOING TO APPOINTMENT OR STAYING IN HOSPITAL WAS APPROPRIATE. PT EXPRESSED THAT HE WOULD BE LEAVING HE HAD NO REASON TO BE HERE. ATTEMPTED TO EDUCATE PT ON IMPORTANCE OF FOLLOWING CAREPLAN. WILL CONTINUE TO REINFORCE AND INFORM DAYSHIFT RN.
--- NOTE | 2023-04-30 21:57 | NUR ---
UPDATE 2LNC APPLIED. PT DESATTING WHILE SLEEPING INTO HIGH 80'S.
[2023-05-01] VITALS: BP 104/70
[2023-05-01 03:25] LABS: BASOPHILS ABSOLUTE AUTO 0.03 K/mm3 (0.00-0.23); BASOPHILS PERCENT AUTO 0 % (0-2); EOSINOPHILS ABSOLUTE AUTO 0.15 K/mm3 (0.00-0.68); EOSINOPHILS PERCENT AUTO 2 % (0-6); IMMATURE GRAN ABSOLUTE AUTO 0.03 K/mm3 (0.00-0.10); IMMATURE GRAN PERCENT AUTO 0 % (0-1); LYMPHOCYTES ABSOLUTE AUTO 1.86 K/mm3 (0.84-5.20); LYMPHOCYTES PERCENT AUTO 20 % (21-46); MONOCYTES ABSOLUTE AUTO 0.86 K/mm3 (0.16-1.47); MONOCYTES PERCENT AUTO 9 % (4-13); Mean Corpuscular HGB Conc 32.4 g/dL (31.5-36.5); Mean Corpuscular Volume 87 fL (80-100); Mean Platelet Volume 9.1 fL (9.1-12.4); NEUTROPHILS ABSOLUTE AUTO 6.58 K/mm3 (1.96-9.15); NEUTROPHILS PERCENT AUTO 69 % (41-73); Platelet Count 198 K/mm3 (150-400); RDW Coefficient Variation 14.1 % (11.7-14.2); RDW Standard Deviation 44.9 fL (35.1-46.3); Red Blood Cell Count 3.93 M/mm3 (4.30-5.90); White Blood Cell Count 9.51 K/mm3 (4.00-11.30)
[2023-05-01 03:44] LABS: Bun/Creatinine Ratio 14.5 (12.0-20.0); Calcium, Blood 8.1 mg/dL (8.5-10.1); Creatinine, Blood 0.89 mg/dL (0.60-1.20); Potassium, Blood 3.6 mmol/L (3.5-5.5)
[2023-05-01 04:00] VITALS: BP 108/76
--- NOTE | 2023-05-01 05:57 | NUR ---
SHIFT SUMMARY PT RESTED QUIETLY T/O NIGHT. SPO2 >92% ON 2LNC; MAP >65; HR VARIABLE IN THE 70-80'S. PT NEEDED PROMPTING TO URINATE. MENTATION REMAINS UNCHANGED. NO ACUTE EVENTS OVERNIGHT.
--- NOTE | 2023-05-01 08:00 | NUR ---
Assumed care of pt at 0700. Report received from Augie SILVA. Pt A&O x 4. Answers questions, follows commands, verbalizes needs. Pleasant and cooperative with care. Mobilizes with supervision. Uses walker while in hospital- he otherwise prefers to lightly touch furniture while ambulating. SpO2 99% with room air. Afib per monitor with rate 95-105. BP stable.
--- NOTE | 2023-05-01 09:00 | NUR ---
Pt reports that he needs to be discharged today because he has dentist appointment to have his infected tooth removed at 1 pm today. This information given to Dr Rubalcava who states to hold apixaban and pt will dicharge today. Discussed with provider that patient does not take digoxin anymore and Dr Rubalcava stated to hold this medication. Dr Rubalcava would like nursing staff to follow up with Dr Bradford and he states to have patient come by his office and they will supply him with a splint. Dr Rubalcava and patient updated on plan of care.
[2023-05-01 09:16] VITALS: BP 119/81
[2023-05-01] MEDS ORDERED: VISBIOME 112.51 EACH PO (11:39)
[2023-05-01] MEDS ORDERED: SULTRIDS PO (11:40)
[2023-05-01] MEDS ORDERED: AMOCLA875 PO (11:40)
[2023-05-01 11:56] VITALS: BP 122/81
--- NOTE | 2023-05-01 12:30 | NUR ---
Patient discharged from unit at 1212. Departed via wheelchair escorted by this RN and his granddaughter. Pt verbalizes understanding that he is to maintain his dental appointment this afternoon and ask his dentist when he can restart his eliquis. Pt also verbalizes understanding that he needs to stop by Dr Bradford's office to get splint for his fingers. Pt verbalizes understanding that [facility]. Pt also verbalizes understanding of the three medications he is to hold off on. Discharge paperwork sent with patient and he understands that he is welcome to call the unit if he has any questions. Belongings sent with patient.
== END 2023-05-01 12:12 | disposition home or self-care (01) | DRG 872 ==
LOC: ER 16:44 → ICUE 21:35
PROVIDERS: Internal Medicine; Nurse Practitioner Acute Care; Student in an Organized Health Care Education/Training Program; ADMIT Internal Medicine
PROC: 5A09357 Assistance with Respiratory Ventilation, Less than 24 Consecutive Hours, Continuous Positive Airway Pressure (ICD-10-PCS; principal; 2023-04-29)
PROC: 3E03329 Introduction of Other Anti-infective into Peripheral Vein, Percutaneous Approach (ICD-10-PCS; 2023-04-29)
PROC: 2W3JX1Z Immobilization of Right Finger using Splint (ICD-10-PCS; 2023-04-30)
DX: A41.9 Sepsis, unspecified organism (principal); S62.630B Displaced fracture of distal phalanx of right index finger, initial encounter for open fracture; I42.9 Cardiomyopathy, unspecified; I50.22 Chronic systolic (congestive) heart failure; I48.91 Unspecified atrial fibrillation; E11.9 Type 2 diabetes mellitus without complications; E78.5 Hyperlipidemia, unspecified; F43.10 Post-traumatic stress disorder, unspecified; G25.81 Restless legs syndrome; K04.7 Periapical abscess without sinus; G47.33 Obstructive sleep apnea (adult) (pediatric); X58.XXXA Exposure to other specified factors, initial encounter; I11.0 Hypertensive heart disease with heart failure; Z98.84 Bariatric surgery status; Z90.79 Acquired absence of other genital organ(s); Z86.73 Personal history of transient ischemic attack (TIA), and cerebral infarction without residual deficits; Z79.84 Long term (current) use of oral hypoglycemic drugs; Z79.899 Other long term (current) drug therapy; Z11.52 Encounter for screening for COVID-19; Z79.01 Long term (current) use of anticoagulants
CPT/HCPCS: 0241U; 36415; 70487; 71046; 80048; 80053; 80162; 81003; 82947; 83605; 83735; 83880; 84443; 85025; 87040; 93005; 93010; 96361; 96365; 96366; 96367; 96375; 97165; 97530; 99285-25; A9270; J1885; J2543; J3370; J7030; J7050; J7120; Q9967

== ENCOUNTER 2023-08-25 08:12 | Day surgery (SDC) | payer OTHER ==
[~2023-08-25] VITALS: Ht 180.3 cm; Wt 94.5 kg
[2023-08-25] VITALS (15 sets, daily range): BP systolic 96–155; BP diastolic 58–92
[~2023-08-25 08:12] MED LIST changes: +AMOCLA875 PO; +Acetaminophen 500 MG Tab PO SCH; +CeFAZolin Sodium 2,000 MG in NS 100 ML IV SCH; +Chlorhexidine Mouth Care 15 ML UDC MT SCH; +JARDIANCE10 MG PO; +Lactated Ringer's 1,000 ML IV SCH; +METO25ER PO; +OxyCODONE HCL 10 MG TABCR PO SCH; +QUET300 PO; +ROPI1 PO; +Ropivacaine 0.5% HCl/Pf 67.75 MG,EPINEPHrine HCL 0.25 MG,Ketorolac Tromethamine 15 MG,C... INFIL SCH; +SERT50 PO; +SULTRIDS PO; +Seroquel Xr50 MG PO; +THERA-D2000 UNIT PO; +TOLT2 PO; +TORS10 PO; +VISBIOME 112.51 EACH PO; +Vancomycin HCL 1,000 MG in NS 100 ML IV SCH
[2023-08-25] MEDS ORDERED: Tranexamic Acid 100 ML IV SCH (08:40)
[2023-08-25] MEDS ORDERED: Tranexamic Acid 1,000 MG in NS 100 ML IV SCH (08:50)
--- NOTE | 2023-08-25 09:12 | NUR ---
History, Chart, Medications and Allergies reviewed before start of procedure. Lungs clear T/O to Auscultation. Patient confirms NPO status and agrees with scheduled surgery. Pre-Op teaching done. Pt verbalizes understanding. Patient reports completing Chlorhexadine shower X2 prior to admission to hospital.
[2023-08-25] MEDS ORDERED: Acetaminophen 500 MG Tab PO SCH ×2 (09:55→16:00)
[2023-08-25] MEDS ORDERED: Chlorhexidine Mouth Care 15 ML UDC MT SCH (09:55)
[2023-08-25] MEDS ORDERED: OxyCODONE HCL 10 MG TABCR PO SCH (09:55)
[2023-08-25] MEDS ORDERED: FentaNYL Citrate 50 MCG/ML 2 ML Injection ONE (09:59)
[2023-08-25] MEDS ORDERED: Midazolam HCl 1MG / ML 2ML Vial ONE (09:59)
[2023-08-25] MEDS ORDERED: rOPINIRole HCl 1 MG Tab PO PRN (10:15)
[2023-08-25] MEDS ORDERED: Gabapentin 300 MG Cap PO PRN (10:15)
[2023-08-25] MEDS ORDERED: propofoL 40 ML IV ONE (10:18)
[2023-08-25] MEDS ORDERED: DiphenhydrAMINE HCL 25 MG Cap PO PRN (10:25)
[2023-08-25] MEDS ORDERED: OxyCODONE HCL 5 MG TAB PO PRN ×2 (10:25)
[2023-08-25] MEDS ORDERED: Bisacodyl 10 MG Supp PR PRN (10:25)
[2023-08-25] MEDS ORDERED: Promethazine HCl 25 MG Tab PO PRN (10:30)
[2023-08-25] MEDS ORDERED: HYDROmorphone HCl/Pf 1MG SYR IV PRN ×2 (10:30→10:45)
[2023-08-25] MEDS ORDERED: Metoclopramide HCl 5MG / ML 2ML Vial IV PRN (10:30)
[2023-08-25] MEDS ORDERED: Lactated Ringer's 1,000 ML IV SCH (10:35)
[2023-08-25] MEDS ORDERED: Magnesium Hydroxide Conc 10 ML UDC PO PRN (10:35)
[2023-08-25] MEDS ORDERED: Ondansetron HCl 2 MG / ML 2ML Vial IV PRN ×2 (10:35→10:45)
[2023-08-25] MEDS ORDERED: Ketorolac Tromethamine 30mg Vial ONE (10:36)
[2023-08-25] MEDS ORDERED: Dexamethasone Sod Phos 10 MG/ML 1ML VIAL ONE (10:36)
[2023-08-25] MEDS ORDERED: FentaNYL Citrate 50 MCG/ML 2 ML Injection IV PRN (10:45)
[2023-08-25] MEDS ORDERED: Albuterol 2.5 MG/3 ML VIAL INH PRN (10:45)
--- NOTE | 2023-08-25 10:48 | NUR ---
08/25/23 1048 Nieves Rios SPINAL NERVE BLOCK COMPLETED UPON ENTRY TO OR. PT TOLERATED WELL. 1GRAM OF VANCOMYCIN GIVEN IVPB AT 0908. 2 GRAMS OF ANCEF GIVEN AT 1016. JOINT COCKTAIL GIVEN THROUGHOUT CASE. (100MLS)
[2023-08-25] MEDS ORDERED: Phenylephrine HCl 100 MCG/ML-NS 10MLSYR (1MG/10ML) ONE (10:50)
[2023-08-25] MEDS ORDERED: Insulin Regular 100 UNIT/ML 10ML Vial SC SCH (11:30)
[2023-08-25] MEDS ORDERED: Ketorolac Tromethamine 15mg Vial IV SCH (12:00)
--- NOTE | 2023-08-25 17:17 | NUR ---
DECLINES BLOOD SUGAR CHECK DUE TO HAVING JUST FINISHED MARIELY's JR MEAL HIS BROUGHT IN. STATES IT WOULD BE OFF BUT AGREES TO HAVE BS CHECKED PRIOR TO BED.
[2023-08-25] MEDS ORDERED: CeFAZolin Sodium 2,000 MG in NS 100 ML IV SCH (18:00)
--- NOTE | 2023-08-25 19:32 | NUR ---
SHIFT SUMMARY PT HAS BEEN APPROP SINCE ARRIVAL TO UNIT. SPINAL WORE OFF LATE BUT WAS ABLE TO GET UP & AMBULATE TO BATHROOM TO VOID. ATTENDS PLACED FOR SOME INCONTINCE. PAIN WELL CONTROLLED.
[2023-08-25] MEDS ORDERED: rOPINIRole HCl 1 MG Tab PO SCH (21:00)
[2023-08-25] MEDS ORDERED: QUEtiapine Fumarate 50 MG TAB PO SCH (21:00)
[2023-08-25] MEDS ORDERED: Docusate Sodium 100 MG Cap PO SCH (21:00)
[2023-08-26 00:24] VITALS: BP 126/82
[2023-08-26 03:38] VITALS: BP 128/83
[2023-08-26] MEDS ORDERED: TRAZ100 PO (03:47)
[2023-08-26 04:51] LABS: BASOPHILS ABSOLUTE AUTO 0.01 K/mm3 (0.00-0.23); BASOPHILS PERCENT AUTO 0 % (0-2); EOSINOPHILS ABSOLUTE AUTO 0.01 K/mm3 (0.00-0.68); EOSINOPHILS PERCENT AUTO 0 % (0-6); Hematocrit 36.8 % (37.0-53.0); IMMATURE GRAN ABSOLUTE AUTO 0.02 K/mm3 (0.00-0.10); IMMATURE GRAN PERCENT AUTO 0 % (0-1); LYMPHOCYTES ABSOLUTE AUTO 0.67 K/mm3 (0.84-5.20); LYMPHOCYTES PERCENT AUTO 9 % (21-46); MONOCYTES ABSOLUTE AUTO 0.67 K/mm3 (0.16-1.47); MONOCYTES PERCENT AUTO 9 % (4-13); Mean Corpuscular HGB Conc 32.6 g/dL (31.5-36.5); Mean Corpuscular Volume 83 fL (80-100); Mean Platelet Volume 9.1 fL (9.1-12.4); NEUTROPHILS ABSOLUTE AUTO 6.25 K/mm3 (1.96-9.15); NEUTROPHILS PERCENT AUTO 82 % (41-73); Platelet Count 211 K/mm3 (150-400); RDW Coefficient Variation 13.4 % (11.7-14.2); RDW Standard Deviation 40.3 fL (35.1-46.3); Red Blood Cell Count 4.44 M/mm3 (4.30-5.90); White Blood Cell Count 7.63 K/mm3 (4.00-11.30)
[2023-08-26 05:31] LABS: Bun/Creatinine Ratio 18.6 (12.0-20.0); Calcium, Blood 8.2 mg/dL (8.5-10.1); Creatinine, Blood 0.81 mg/dL (0.60-1.20); Magnesium, Blood 1.9 mg/dL (1.6-2.4)
--- NOTE | 2023-08-26 06:42 | NUR ---
PT HOPING FOR DISCHARGE TODAY.HAD HOSPITAL SUPPLIED CPAP ,BUT DID NOT TOLERATE IT AND REMOVED IT.PT REPORTS [facility] IS [facility]WARE [facility] HOME CPAP NEEDS TO BE REPAIRED AND HAS BEEN WITHOUT IT. HE REPORTS [facility] TO [facility] FOR [facility].PT VOIDING AND TOLERATING PO.TAKING PO PAIN MEDS AND HAS ROUTINE TORADOL ORDERED.
[2023-08-26 07:09] VITALS: BP 123/91
[2023-08-26] MEDS ORDERED: Metoprolol Succinate 25 MG TABCR PO SCH (09:00)
[2023-08-26] MEDS ORDERED: Empagliflozin 25 MG TAB PO SCH (09:00)
[2023-08-26] MEDS ORDERED: Torsemide 10 MG TAB PO SCH (09:00)
[2023-08-26] MEDS ORDERED: Sertraline HCl 50 MG Tab PO SCH (09:00)
--- NOTE | 2023-08-26 11:05 | NUR ---
DISCHARGE POD1 R TKA, AQUACEL CDI, TEDS/POLAR AFUA. A&OX4, VSS/RA, DAYANARA PO, VOIDING, AMB FWW, PAIN MANAGED, IV DC'D. LEFT FLOOR VIA WC WITH COMPUTER SERVICE TECHNICIAN TO GO HOME WITH SON-IN- LAW WITH ALL PERSONAL POSSESSIONS INCLUDING DC PACKET, POLAR AFUA, AQUACEL DRESSINGS. DC INS PROVIDED; PT REP UNDERSTANDING.
[2023-08-26] MEDS ORDERED: Apixaban 5 MG Tab PO SCH (12:00)
== END 2023-08-26 11:04 | disposition home or self-care (01) ==
LOC: ORSCMMR 08:12 → SURS 12:28 → ORD 12:30 → ORSCMMR 13:45 → ORD 14:30 → ORSCMMR 08-26 11:04
PROVIDERS: Orthopaedic Surgery
PROC: 0SRD0JA Replacement of Left Knee Joint with Synthetic Substitute, Uncemented, Open Approach (ICD-10-PCS; principal; 2023-08-25 10:00)
DX: M17.12 Unilateral primary osteoarthritis, left knee (principal); I48.91 Unspecified atrial fibrillation; Z79.01 Long term (current) use of anticoagulants; E11.9 Type 2 diabetes mellitus without complications; E78.5 Hyperlipidemia, unspecified; J44.9 Chronic obstructive pulmonary disease, unspecified; G47.33 Obstructive sleep apnea (adult) (pediatric); F41.9 Anxiety disorder, unspecified; F32.A Depression, unspecified; F43.10 Post-traumatic stress disorder, unspecified; Z79.899 Other long term (current) drug therapy
CPT/HCPCS: 27447; 0055T; 36415; 73560-LT; 80048; 82947; 83735; 85025; 97110; 97116; 97162; A9270; C1713; C1776; J0171; J0690; J0735; J1100; J1885; J2250; J2371; J2704; J2795; J3010; J3370; J7120

== ENCOUNTER 2025-01-15 17:42 | Inpatient (IN) | payer OTHER ==
[~2025-01-15] VITALS: Ht 182.9 cm; Wt 89.3 kg
[~2025-01-15 17:42] MED LIST changes: -Acetaminophen 500 MG Tab PO SCH; -CeFAZolin Sodium 2,000 MG in NS 100 ML IV SCH; -Chlorhexidine Mouth Care 15 ML UDC MT SCH; +GABA100 PO; -GABA300 PO; -Lactated Ringer's 1,000 ML IV SCH; +Metoprolol Tartrate 1 MG/ML 5 ML VIAL IV PRN; -OxyCODONE HCL 10 MG TABCR PO SCH; -Ropivacaine 0.5% HCl/Pf 67.75 MG,EPINEPHrine HCL 0.25 MG,Ketorolac Tromethamine 15 MG,C... INFIL SCH; +TRAZ100 PO; -Vancomycin HCL 1,000 MG in NS 100 ML IV SCH
[2025-01-15] MEDS ORDERED: NS 1,000 ML IV SCH (20:20)
[2025-01-15 20:27] LABS: Hematocrit 41.1 % (37.0-53.0); Hemoglobin 13.8 g/dL (13.5-17.5); Mean Corpuscular HGB Conc 33.6 g/dL (31.5-36.5); Mean Corpuscular Volume 85 fL (80-100); NRBC ABSOLUTE 0.00 K/mm3 (0.00-0.02); NRBC Auto 0.0 /100 WBC (0.0-0.2); Platelet Count 208 K/mm3 (150-400); RDW Coefficient Variation 13.9 % (11.7-14.2); RDW Standard Deviation 43.8 fL (35.1-46.3)
[2025-01-15 20:47] LABS: Alanine Aminotransfer (ALT/SGP 42 U/L (12-78); Albumin, Blood 3.2 g/dL (3.4-5.0); Albumin/Globulin Ratio 0.8 (0.8-1.8); Anion Gap 13 mmol/L (3-11); Aspartate Aminotrans (AST/SGOT 117 U/L (12-37); Bilirubin, Total 1.3 mg/dL (0.1-1.0); Blood Urea Nitrogen 26 mg/dL (8-24); CO2, Blood 23 mmol/L (21-32); Calcium, Blood 9.2 mg/dL (8.5-10.1); Chloride, Blood 100 mmol/L (98-108); Creatinine, Blood 1.21 mg/dL (0.60-1.20); Globulin, Blood 4.0 g/dL (2.2-4.0); Glucose, Blood 182 mg/dL (70-99); Potassium, Blood 3.6 mmol/L (3.5-5.5); Sodium, Blood 132 mmol/L (136-145); Total Protein, Blood 7.2 g/dL (6.4-8.2)
[2025-01-15 21:09] LABS: BAND PERCENT MAN 4 % (0-8); BASOPHILS ABSOLUTE MAN 0.00 K/mm3 (0.00-0.23); BASOPHILS PERCENT MAN 0 % (0-2); EOSINOPHILS ABSOLUTE MAN 0.00 K/mm3 (0.00-0.68); EOSINOPHILS PERCENT MAN 0 % (0-6); LYMPHOCYTES ABSOLUTE MAN 0.15 K/mm3 (0.84-5.20); LYMPHOCYTES PERCENT MAN 1 % (21-46); MONOCYTES ABSOLUTE MAN 0.00 K/mm3 (0.16-1.47); MONOCYTES PERCENT MAN 0 % (4-13); NEUTROPHILS ABSOLUTE MAN 15.83 K/mm3 (1.96-9.15); SEG NEUTROPHILS PERCENT MAN 95 % (41-73)
[2025-01-15] MEDS ORDERED: Vancomycin (Pharmacy Consult) IV PRN (21:30)
[2025-01-15] MEDS ORDERED: CefTRIAXone Sodium 2,000 MG in NS 100 ML IV ONE (21:30)
[2025-01-15 22:14] LABS: C-Reactive Protein, High Sens. >190.000 mg/L (0.000-3.000)
[2025-01-15] MEDS ORDERED: Vancomycin (Pharmacy Consult) IV SCH (23:15)
[2025-01-15] MEDS ORDERED: NS 500 ML IV SCH (23:20)
[2025-01-16] VITALS (24 sets, daily range): BP systolic 85–137; BP diastolic 58–108
[2025-01-16] MEDS ORDERED: Metoprolol Tartrate 1 MG/ML 5 ML VIAL IV ONE
[2025-01-16] MEDS ORDERED: CeFAZolin Sodium 2,000 MG in NS 100 ML IV SCH
[2025-01-16] MEDS ORDERED: OxyCODONE 5 mg/Acetamin 325 mg TABLET PO PRN (02:40)
--- NOTE | 2025-01-16 05:20 | NUR ---
SHIFT SUMMARY PT A&OX4. VSS ON RA >90%. ON TELE PT AFIB W RVR 110-120. PT WOULD TACH UP TO 140s BUT NEVER SUSTAIN. PT RECIEVING 500CC BOLUS @ 75CC/HR WITH IV ABX GIVEN PER EMAR. PT C/O MODERATE-SEVERE PAIN IN BLE. REMAINS BEDREST. USING URINAL AT BEDSIDE. NO FURTHER QUESTIONS OR CONCERNS AT THIS TIME. PT REMAINS NPO. WILL CONTINUE WITH PLAN OF CARE.
[2025-01-16 06:00] LABS: Hematocrit 40.0 % (37.0-53.0); Hemoglobin 13.3 g/dL (13.5-17.5); Mean Corpuscular HGB Conc 33.3 g/dL (31.5-36.5); Mean Corpuscular Volume 88 fL (80-100); NRBC ABSOLUTE 0.00 K/mm3 (0.00-0.02); NRBC Auto 0.0 /100 WBC (0.0-0.2); Platelet Count 197 K/mm3 (150-400); RDW Coefficient Variation 14.2 % (11.7-14.2); RDW Standard Deviation 45.8 fL (35.1-46.3)
[2025-01-16 06:25] LABS: BAND PERCENT MAN 11 % (0-8); BASOPHILS ABSOLUTE MAN 0.00 K/mm3 (0.00-0.23); BASOPHILS PERCENT MAN 0 % (0-2); EOSINOPHILS ABSOLUTE MAN 0.00 K/mm3 (0.00-0.68); EOSINOPHILS PERCENT MAN 0 % (0-6); LYMPHOCYTES ABSOLUTE MAN 1.12 K/mm3 (0.84-5.20); LYMPHOCYTES PERCENT MAN 7 % (21-46); MONOCYTES ABSOLUTE MAN 0.64 K/mm3 (0.16-1.47); MONOCYTES PERCENT MAN 4 % (4-13); MYELOCYTE ABSOLUTE MAN 0.16 K/mm3 (0.00-0.00); MYELOCYTE PERCENT MAN 1 % (0-0); NEUTROPHILS ABSOLUTE MAN 14.16 K/mm3 (1.96-9.15); SEG NEUTROPHILS PERCENT MAN 77 % (41-73)
[2025-01-16 06:26] LABS: Alanine Aminotransfer (ALT/SGP 38.0 U/L (12-78); Albumin, Blood 2.7 g/dL (3.4-5.0); Albumin/Globulin Ratio 0.7 (0.8-1.8); Anion Gap 13.0 mmol/L (3-11); Aspartate Aminotrans (AST/SGOT 96.0 U/L (12-37); Bilirubin, Total 0.9 mg/dL (0.1-1.0); Blood Urea Nitrogen 25.0 mg/dL (8-24); CO2, Blood 22.0 mmol/L (21-32); Calcium, Blood 8.5 mg/dL (8.5-10.1); Chloride, Blood 104.0 mmol/L (98-108); Creatinine, Blood 1.06 mg/dL (0.60-1.20); Globulin, Blood 3.9 g/dL (2.2-4.0); Glucose, Blood 141.0 mg/dL (70-99); Potassium, Blood 3.5 mmol/L (3.5-5.5); Sodium, Blood 135.0 mmol/L (136-145); Total Protein, Blood 6.6 g/dL (6.4-8.2)
[2025-01-16] MEDS ORDERED: Lactobacil 2-S.Thermo-Bifido 1 1 Cap PO SCH (09:00)
[2025-01-16 12:21] LABS: BODY FLUID RBC 0.039 M/mm3 (0-0)
[2025-01-16] MEDS ORDERED: Tranexamic Acid 100 ML IV SCH ×2 (12:30→22:05)
[2025-01-16] MEDS ORDERED: Chlorhexidine Mouth Care 15 ML UDC MT SCH (12:30)
[2025-01-16] MEDS ORDERED: Ropivacaine 0.5% HCl/Pf 123.125 MG,EPINEPHrine HCL 0.25 MG,Ketorolac Tromethamine 15 MG... INFIL SCH (12:30)
[2025-01-16 12:31] LABS: Appearance, Synovial Fluid Turbid (Clear); Color, Synovial Fluid Dark Yellow (None-P Yel); RBC Count, Synovial Fluid 39000 /mm3 (0-0); WBC Count, Synovial Fluid 189900 /mm3 (0-180)
[2025-01-16 13:07] LABS: Lymphs, Synovial Fluid 3 % (0-15); Monocytes/Macrophages, Synovia 2 % (0-65); Neutrophils, Synovial Fluid 95 % (0-24)
[2025-01-16] MEDS ORDERED: NS 250 ML IV PRN (17:40)
[2025-01-16] MEDS ORDERED: CefTRIAXone Sodium 2,000 MG in NS 100 ML IV SCH (18:00)
--- NOTE | 2025-01-16 18:13 | NUR ---
SHIFT SUMMARY PT A&Ox4, CALLS AND COMMUNICATES NEEDS APPROPRIATELY, [place]. BP STABLE, AFIB 100-130's, BP TEMPORARILY SOFT WITH MAP> 65 AFTER LOPRESSOR PUSH, ASYMPTOMATIC. SpO2> 92% RA, DENIES SOB. PT NPO THROUGHOUT SHIFT FOR L KNEE WASH OUT. PT REMAINED BEDREST D/T BLE PAIN. Q2 TURNS PROVIDED. PT TO OR AT APPROXIMATELY 1800. NO OTHER EVENTS, WILL REPORT TO ONCOMING RN.
[2025-01-16] MEDS ORDERED: Vancomycin HCl 1000 MG ADDvantage ONE (18:41)
[2025-01-16] MEDS ORDERED: FentaNYL Citrate 50 MCG/ML 2 ML Injection ONE ×2 (18:57→21:06)
[2025-01-16] MEDS ORDERED: Rocuronium Bromide 10 MG/ML 5ML Injection IV ONE (18:58)
[2025-01-16] MEDS ORDERED: Ondansetron HCl 2 MG / ML 2ML Vial ONE (18:58)
[2025-01-16] MEDS ORDERED: Phenylephrine HCl 100 MCG/ML-NS 10MLSYR (1MG/10ML) ONE (19:02)
[2025-01-16] MEDS ORDERED: Sugammadex Sodium 200 MG/2ML SDV (100 MG/ML) ONE (20:24)
[2025-01-17] VITALS (8 sets, daily range): BP systolic 96–117; BP diastolic 59–82
[2025-01-17 04:31] LABS: Hematocrit 40.0 % (37.0-53.0); Hemoglobin 13.0 g/dL (13.5-17.5); Mean Corpuscular HGB Conc 32.5 g/dL (31.5-36.5); Mean Corpuscular Volume 88 fL (80-100); NRBC ABSOLUTE 0.00 K/mm3 (0.00-0.02); NRBC Auto 0.0 /100 WBC (0.0-0.2); Platelet Count 225 K/mm3 (150-400); RDW Coefficient Variation 14.6 % (11.7-14.2); RDW Standard Deviation 47.1 fL (35.1-46.3)
[2025-01-17 04:55] LABS: Anion Gap 10.0 mmol/L (3-11); Blood Urea Nitrogen 37.0 mg/dL (8-24); CO2, Blood 23.0 mmol/L (21-32); Calcium, Blood 8.1 mg/dL (8.5-10.1); Chloride, Blood 106.0 mmol/L (98-108); Creatinine, Blood 0.97 mg/dL (0.60-1.20); Glucose, Blood 129.0 mg/dL (70-99); Potassium, Blood 4.2 mmol/L (3.5-5.5); Sodium, Blood 135.0 mmol/L (136-145)
--- NOTE | 2025-01-17 06:04 | NUR ---
PT ARRIVED FROM RECOVERY TO FLOOR AT 2120 S/P LEFT KNEE WASHOUT. PT ALERT AND ORIENTED X 4. PT ABLE TO SWALLOW WITHOUT COUGHING. FOLLOWS COMMANDS APPROPRIATELY.PT HAS HEMOVAC DRAIN AT LEFT KNEE. MINIMAL OUTPUT FROM DRAIN. PT RECEIVED IV ANTIBIOTICS ORDERED. BED LOCKED AND IN LOWEST POSITION. CALL LIGHT WITHIN REACH. PT USES URINAL APPROPRIATELY. VSS.
[2025-01-17 11:04] LABS: Vancomycin, Trough 14.1 ug/mL (5.0-10.0)
[2025-01-17] MEDS ORDERED: SYNJARDY XR 121 EAC1 PO (16:01)
[2025-01-17] MEDS ORDERED: TOLTERODINE TART2 MG PO (16:05)
[2025-01-17] MEDS ORDERED: Calcium Carbon500 MG PO (16:05)
[2025-01-17] MEDS ORDERED: FERSU300 PO (16:06)
[2025-01-17] MEDS ORDERED: ASCO500 PO (16:07)
[2025-01-17] MEDS ORDERED: DICLOFENAC SODIUM TOP (16:10)
--- NOTE | 2025-01-17 18:23 | NUR ---
SHIFT SUMMARY: PT HAS BEEN A&Ox4, COOPERATIVE W/CARE, ABLE TO COMMUNICATE NEEDS. PT ENDORSES IMPROVEMENT TO PAIN AND OVERALL FEELING OF WELLNESS. HEMOVAC DRAIN TO L KNEE W/MINIMAL OUTPUT OF SANGUINEOUS FLUID, DRESSING IS C/D/I. PT DENIES SOB, O2 SATS MAINTAINED >93% ON RA. PT DENIES CHEST PAIN, AFIB ON MONITOR 110-120s, DOSE INCREASE ON MEDICATION W/HEART RATE DECREASE TO 100-110s. BEDBATH COMPLETED THIS SHIFT, PT ABLE TO ASSIST W/TURNS. PT USING URINAL IN BED. PT/OT EVALs HAVE BEEN ORDERED, TO BE COMPLETED 01/18/25. IV ABX INFUSIONS PER EMAR. PT RESTING QUIETLY IN ROOM, CALL LIGHT IN REACH.
[2025-01-18 03:32] VITALS: BP 126/81
[2025-01-18 03:52] LABS: Hematocrit 43.2 % (37.0-53.0); Hemoglobin 14.3 g/dL (13.5-17.5); Mean Corpuscular HGB Conc 33.1 g/dL (31.5-36.5); Mean Corpuscular Volume 85 fL (80-100); NRBC ABSOLUTE 0.00 K/mm3 (0.00-0.02); NRBC Auto 0.0 /100 WBC (0.0-0.2); Platelet Count 192 K/mm3 (150-400); RDW Coefficient Variation 14.7 % (11.7-14.2); RDW Standard Deviation 45.9 fL (35.1-46.3)
[2025-01-18 04:01] LABS: Albumin, Blood 2.2 g/dL (3.4-5.0); Anion Gap 10 mmol/L (3-11); Blood Urea Nitrogen 31 mg/dL (8-24); CO2, Blood 26 mmol/L (21-32); Calcium, Blood 7.9 mg/dL (8.5-10.1); Chloride, Blood 102 mmol/L (98-108); Creatinine, Blood 0.85 mg/dL (0.60-1.20); Glucose, Blood 145 mg/dL (70-99); Magnesium, Blood 2.2 mg/dL (1.6-2.4); Phosphorus, Blood 1.7 mg/dL (2.5-4.9); Potassium, Blood 3.5 mmol/L (3.5-5.5); Sodium, Blood 134 mmol/L (136-145)
--- NOTE | 2025-01-18 05:36 | NUR ---
NO ACUTE EVENTS OVERNIGHT. PT ALERT AND ORIENTED X4. VSS. FOLLOWS COMMANDS AND CALLS APPROPRIATELY. USES URINAL. NO OUTPUT FROM HEMOVAC DRAIN. BED LOCKED IN LOWEST POSITION. CALL LIGHT WITHIN REACH.
[2025-01-18 07:41] VITALS: BP 152/77
[2025-01-18 15:15] VITALS: BP 119/86
--- NOTE | 2025-01-18 15:22 | NUR ---
ARRIVAL TO UNIT PT ARRIVED TO THE UNIT AT 1515. A/OX4 ABLE TO MAKE NEEDS KNOWN. PT IS SLIGHTLY HARD OF HEARING. CAP REFIL <3 SECONDS. PEDAL AND RADIAL PULSES STRONG. +1 PITTING EDEMA ON LLE. LLE IS REDDENNED. SURGICAL SITE COVERED IN GAUZE AND BILL WRAP, DRESSING APPEARS C/D/I. AIRLINE RESERVATION AGENT STATES PT IS CURRENTLY AFIB AT 109. PAIN MANAGED PER EMAR.
--- NOTE | 2025-01-18 18:43 | NUR ---
NO ACUTE CHANGES WILL REPORT TO ONCLINDA RN
[2025-01-18 19:57] VITALS: BP 116/84
[2025-01-18] MEDS ORDERED: Insulin Human Lispro 100 Units/ML 3ML Syringe SC SCH (22:25)
[2025-01-18 23:36] VITALS: BP 136/89
[2025-01-19] VITALS (20 sets, daily range): BP systolic 102–158; BP diastolic 68–98
--- NOTE | 2025-01-19 07:00 | NUR ---
SHIFT SUMMARY NOC. PT POD 3 FOR I&D OF L KNEE, PLAN FOR REPEAT I&D TODAY. NPO SINCE 0000 ASIDE FROM SIP OF WATER WITH PAIN MEDICATION. NEW ORDERS RECEIVED THIS SHIFT FOR CHEM BG D/T ELEVATED READING AT QHS. MEDICATED PER SLIDE SCALE AND HELD X2 D/T DROPPING SUGARS. TELEMETRY INTACT WITH NO REPORTED EVENTS. PT SOMNOLENT AT START OF SHIFT, ARROUSABLE BUT RETURNS RIGHT BACK TO SLEEP. CALL LIGHT IN REACH.
[2025-01-19] MEDS ORDERED: Cholecalciferol 1000 Unit Tablet (=25MCG) PO SCH (09:00)
--- NOTE | 2025-01-19 11:28 | NUR ---
PT TO OR AT ABOUT 1115
[2025-01-19] MEDS ORDERED: Tranexamic Acid 100 ML IV SCH (11:30)
--- NOTE | 2025-01-19 12:27 | NUR ---
PRE OP NOTE PT A&OX4, BREATHING RA, CALM, NO APPARENT DISTRESS. Patient confirms NPO status and agrees with scheduled surgery. PT TO DSU IN HOSPITAL BED. Pre-Op teaching done. Pt verbalizes understanding.PT HAS INCISION OVER KNEE FROM PREVIOUS SURGERY COVERED WITH ABD PADS.
[2025-01-19] MEDS ORDERED: FentaNYL Citrate 50 MCG/ML 2 ML Injection ONE ×2 (12:56→14:59)
[2025-01-19] MEDS ORDERED: Dexamethasone Sod Phos 10 MG/ML 1ML VIAL ONE (12:57)
[2025-01-19] MEDS ORDERED: Ondansetron HCl 2 MG / ML 2ML Vial ONE ×2 (12:57→14:58)
[2025-01-19] MEDS ORDERED: Rocuronium Bromide 10 MG/ML 5ML Injection IV ONE (12:57)
[2025-01-19] MEDS ORDERED: Phenylephrine HCl 100 MCG/ML-NS 10MLSYR (1MG/10ML) ONE (13:12)
[2025-01-19] MEDS ORDERED: Vancomycin HCl 1000 MG ADDvantage ONE (13:42)
[2025-01-19] MEDS ORDERED: HYDROmorphone HCl/Pf 1MG SYR ONE ×2 (13:57→14:59)
[2025-01-19] MEDS ORDERED: FentaNYL Citrate 50 MCG/ML 2 ML Injection IV PRN (14:00)
[2025-01-19] MEDS ORDERED: HYDROmorphone HCl/Pf 1MG SYR IV PRN (14:00)
[2025-01-19] MEDS ORDERED: Ondansetron HCl 2 MG / ML 2ML Vial IV PRN (14:00)
[2025-01-19] MEDS ORDERED: Sugammadex Sodium 200 MG/2ML SDV (100 MG/ML) ONE (14:19)
--- NOTE | 2025-01-19 16:04 | NUR ---
POST OP: REPORT FROM PETERSON, CERTIFIED EXECUTIVE CHEF. PT TO UNIT AT 1550. DROWSY, AWAKENS TO VOICE. FOLLOWS COMMANDS. SUGICAL SITE WNL. SENSATION INTACT. TELE APPLIED AND VERIFIED WITH AMARILYS. AFIB 111. SMALL CRACKLES ASCULTATED AT BILAT LOWER LUNGS, PT ENCOURAGED TO COUGH AND DEEP BREATHE. I.S. EDUCATION. CALL LIGHT IN REACH, BED ALARM SET FOR SAFETY.
[2025-01-20] VITALS (7 sets, daily range): BP systolic 107–140; BP diastolic 66–87
--- NOTE | 2025-01-20 05:09 | NUR ---
SHIFT SUMMARY NO ACUTE CHANGES T/O NIGHT. DRESSING TO LEFT KNEE CDI. DAYANARA PO INTAKE. DENIES NEED FOR PAIN MEDICATTION. ABLE TO MAKE NEEDS KNOWN. ABX AND IVF INFUSING PER ORDERS. CURRENTLY RESTING IN BED WITH EYES CLOSED, RESP EVEN AND CALL LIGHT IN REACH. WILL GIVE REPORT TO ONCOMING RN.
--- NOTE | 2025-01-20 07:21 | NUR ---
ASSUMPTION OF CARE: THIS RN ASSUMED CARE OF PATIENT. ASLEEP DURING SHIFT CHANGE REPORT. LYING IN BED, SUPINE. BREATHING EVEN AND UNLABORED c 1LPM/NC. KVO PICC RUE. MOST RECENT TELE STRIP IN CHART REVIEWED AND INTERPRETED AFIB @ 104. BILL WRAP LEFT KNEE C/D/I c EARLENE OVER UP TO THIGH. BED IN LOWEST POSITION. CALL LIGHT WITHIN REACH. ACUTE NEEDS MET.
[2025-01-20] MEDS ORDERED: Insulin Human Lispro 100 Units/ML 3ML Syringe SC SCH (11:30)
[2025-01-20] MEDS ORDERED: CEFTRIAXONE2 G1 IV (11:46)
[2025-01-20] MEDS ORDERED: HUMALOG JU100 UNIT/2 SC (11:47)
[2025-01-20] MEDS ORDERED: OXAYDO5 M1 PO (11:47)
--- NOTE | 2025-01-20 19:40 | NUR ---
END OF SHIFT SUMMARY: A&Ox4. PLEASANT AND COOPERATIVE WITH CARE. CALLS APPROPRIATELY AND IS ABLE TO ADVOCATE NEEDS EFFECTIVELY. VSS. TELE STRIP IN CHART REVIEWED AND INTERPRETED AFIB. BREATHING EVEN AND UNLABORED c RA. CONTINENT OF BOWEL AND BLADDER. TOLERATING REGULAR DIET. MEDS WHOLE c FLUIDS. WORKED c PT/OT TODAY. ANTICIPATE DC TO [facility] TOMORROW. TRANSPORTATION SET FOR 1100 01/21/25. BED IN LOWEST POSITION, CALL LIGHT WITHIN REACH, ALL NEEDS MET. REPORT TO ONCOMING NURSE.
--- NOTE | 2025-01-21 04:30 | NUR ---
SHIFT SUMMARY NO ACUTE CHANGES TONIGHT. DRESSING TO LEFT KNEE CDI. PT ABLE TO TRANSFER FROM BED TO CHAIR WITH 1 ASSIST, FWW, GB; CONT WEAKNESS NOTED. IS A/OX4, ABLE TO MAKE NEEDS KNOWN. IS VOIDING IND WITH URINAL. DAYANARA PO INTAKE. PICC CDI. PLAN FOR D/C TODAY. PT CURRENTLY RESTING IN BED WITH CALL LIGHT IN REACH. WILL GIVE REPORT TO ONCOMING RN.
[2025-01-21 04:39] VITALS: BP 144/81
[2025-01-21 07:06] VITALS: BP 157/97
--- NOTE | 2025-01-21 11:40 | NUR ---
DISCHARGE PATIENT VSS, AOX4, 2 PERSON ASSIST. PICC LINE IN FOR SNF IV ABX. PATIENT PACKET IS WITH TECHNOLOGY EDUCATION TEACHER. MEDICATED FOR PAIN PER EMAR. TOELRATING WELL. PATIENT IS L KNEE WITH BILL WRAP DRESSING C/D/I. ALL BELONGINGS WITH PATIENT AND TECHNOLOGY EDUCATION TEACHER. PATIENT LEAVES WITH TRANSPORT.
== END 2025-01-21 11:35 | DRG 485 ==
LOC: ER 17:42 → PCU 22:01 → SURS 22:01 → PCU 01-16 01:51 → SURS 01-18 15:31
PROVIDERS: Internal Medicine; Orthopaedic Surgery; Student in an Organized Health Care Education/Training Program; ADMIT Internal Medicine
PROC: 3E03329 Introduction of Other Anti-infective into Peripheral Vein, Percutaneous Approach (ICD-10-PCS; 2025-01-16)
PROC: 0SBD0ZZ Excision of Left Knee Joint, Open Approach (ICD-10-PCS; principal; 2025-01-16 18:30)
DX: T84.54XA Infection and inflammatory reaction due to internal left knee prosthesis, initial encounter (principal); A41.9 Sepsis, unspecified organism; R65.20 Severe sepsis without septic shock; M00.262 Other streptococcal arthritis, left knee; E87.20 Acidosis, unspecified; E87.1 Hypo-osmolality and hyponatremia; I50.32 Chronic diastolic (congestive) heart failure; L03.116 Cellulitis of left lower limb; Y83.8 Other surgical procedures as the cause of abnormal reaction of the patient, or of later complication, without mention of misadventure at the time of the procedure; I48.91 Unspecified atrial fibrillation; E11.42 Type 2 diabetes mellitus with diabetic polyneuropathy; F43.10 Post-traumatic stress disorder, unspecified; G25.81 Restless legs syndrome; I11.0 Hypertensive heart disease with heart failure; Z79.01 Long term (current) use of anticoagulants; B95.0 Streptococcus, group A, as the cause of diseases classified elsewhere; Z87.19 Personal history of other diseases of the digestive system; E78.5 Hyperlipidemia, unspecified; Z86.73 Personal history of transient ischemic attack (TIA), and cerebral infarction without residual deficits; Z98.84 Bariatric surgery status; Z90.89 Acquired absence of other organs; Z98.890 Other specified postprocedural states; Z90.79 Acquired absence of other genital organ(s); Z79.899 Other long term (current) drug therapy
CPT/HCPCS: 36415; 71045; 73562-LT; 80048; 80053; 80069; 80202; 82947; 83605; 83735; 85025; 85027; 85651; 86140; 86141; 87040; 87070; 87075; 87147; 87205; 89051; 89060; 93005; 93010; 96360; 97110; 97116; 97162; 97165; 97530; 97535; 99285-25; A6253; A9270; J0690; J0696; J1100; J1171; J2371; J2405; J2704; J3010; J3373; J7030; J7040; J7050; J7120